=== PATIENT | male | born 2000 | race Caucasian/White ===

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

== ENCOUNTER 2020-08-26 19:16 | Emergency (ER) | payer MEDICAID ==
[2020-08-26] MEDS ORDERED: XYLOCAINE 1% HCL 20 ML MDV IJ ONE (19:45)
[2020-08-26] MEDS ORDERED: BACIGUENT PACKET ONE (19:56)
[2020-08-26] MEDS ORDERED: BACIGUENT PACKET TP ONE (19:56)
[2020-08-26] MEDS ORDERED: KEFLEX 500 MG ONE (19:57)
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
[2020-08-26 20:02] VITALS: BP 118/75; PULSE 96
[2020-08-26 20:06] VITALS: O2SAT 98
[2020-08-26] MEDS ORDERED: KEFLEX 500 MG PO ONE (20:07)
== END 2020-08-26 20:15 | disposition home or self-care (01) ==
LOC: ED 19:16
DX: S91.311A Laceration without foreign body, right foot, initial encounter (principal); W22.09XA Striking against other stationary object, initial encounter; Y93.89 Activity, other specified; Y92.89 Other specified places as the place of occurrence of the external cause
CPT/HCPCS: 12001; 96372; 99284; A9270-GY

== ENCOUNTER 2022-02-25 12:51 | Emergency (ER) | payer MEDICAID ==
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
[2022-02-25 15:26] VITALS: BP 138/72; PULSE 82; O2SAT 97
== END 2022-02-25 15:27 | disposition home or self-care (01) ==
LOC: ED 12:51
DX: S00.12XA Contusion of left eyelid and periocular area, initial encounter (principal); S20.212A Contusion of left front wall of thorax, initial encounter; S70.11XA Contusion of right thigh, initial encounter; S00.81XA Abrasion of other part of head, initial encounter; Y00.XXXA Assault by blunt object, initial encounter; Z72.0 Tobacco use; Z28.310 Unvaccinated for COVID-19
CPT/HCPCS: 70450; 71100; 99284

== ENCOUNTER 2023-05-21 12:15 | Emergency (ER) | payer MEDICAID ==
--- NOTE | 2023-05-21 12:16 | ERPHSYRPT ---
- History of Present Illness Time Seen by Provider: 05/21/23 12:16 Historian: patient Exam Limitations: no limitations Physician History: This is a 22-year-old white male who has no documented cardiac history and presents with left anterior chest pain that radiates into his back as well as down his left arm that began today. His symptoms are worse when he takes a deep breath. He has had no cough. He has had no fevers. He has no flulike symptoms. Timing/Duration: today Quality: sharpness Location: other Chest Pain Radiation: arm (Left), back (Left anterior chest) Severity of Pain-Max: mild (To moderate) Severity of Pain-Current: mild Modifying Factors: Improves With: nothing Associated Symptoms: denies symptoms Prior Chest Pain/Cardiac Workup: no prior chest pain, no prior cardiac workup Nitro Today/Relief: no nitro taken today Aspirin Treatment Today: 81 mg x 4, provided by ED Allergies/Adverse Reactions: codeine Adverse Reaction (Mild, Verified 08/26/20 19:22) nightmares Home Medications: No Reportable Medications [No Reported Medications] 05/21/23 [History] Hx Tetanus, Diphtheria Vaccination/Date Given: Yes (2017) Hx Influenza Vaccination/Date Given: No Hx Pneumococcal Vaccination/Date Given: No Travel Risk - International Travel Have you traveled outside of the country in past 3 weeks: No - Coronavirus Screening Are you exhibiting any of the following symptoms?: No Close contact with a COVID-19 positive Pt in past 14-21 Days: No - Vaccine Status Have you recieved a Covid-19 vaccination: No - Review of Systems Constitutional: No Symptoms Eyes: No Symptoms Ears, Nose, & Throat: No Symptoms Respiratory: No Symptoms Cardiac: Chest Pain Abdominal/Gastrointestinal: No Symptoms Genitourinary Symptoms: No Symptoms Musculoskeletal: No Symptoms Skin: No Symptoms Neurological: No Symptoms Psychological: No Symptoms Endocrine: No Symptoms Hematologic/Lymphatic: No Symptoms Immunological/Allergic: No Symptoms All Other Systems: Reviewed and Negative - Past Medical History Pertinent Past Medical History: Yes Neurological History: No Pertinent History ENT History: No Pertinent History Cardiac History: No Pertinent History Respiratory History: No Pertinent History Endocrine Medical History: No Pertinent History Musculoskeletal History: No Pertinent History GI Medical History: No Pertinent History History: No Pertinent History Psycho-Social History: Depression Male Reproductive Disorders: No Pertinent History - Past Surgical History Past Surgical History: No - Social History Smoking Status: Current every day smoker How long have you smoked: 5 years Exposure to second hand smoke: No Drug Use: none Patient Lives Alone: No - Nursing Vital Signs Nursing Vital Signs: Initial Vital Signs Temperature 97.2 F 05/21/23 12:15 Pulse Rate 59 L 05/21/23 12:15 Respiratory Rate 22 05/21/23 12:15 Blood Pressure 158/97 05/21/23 12:15 O2 Sat by Pulse Oximetry 99 05/21/23 12:15 Pain Scale Pain Intensity 2 - Physical Exam General Appearance: no apparent distress, alert, anxiety Eye Exam: PERRL/EOMI, eyes nml inspection Ears, Nose, Throat Exam: normal ENT inspection, moist mucous membranes Neck Exam: normal inspection, non-tender, supple, full range of motion Respiratory Exam: normal breath sounds, chest tenderness, lungs clear, airway intact, No respiratory distress Cardiovascular Exam: regular rate/rhythm, normal heart sounds, normal peripheral pulses Gastrointestinal/Abdomen Exam: soft, normal bowel sounds, No tenderness Rectal Exam: not done Back Exam: normal inspection, normal range of motion, No CVA tenderness, No juan tebral tenderness Extremity Exam: normal inspection, normal range of motion, pelvis stable Neurologic Exam: alert, oriented x 3, cooperative, environmental planning engineer II-XII nml as tested, nml cerebellar function, nml station & gait, sensation nml Skin Exam: normal color, warm, dry Lymphatic Exam: No adenopathy SpO2 Interpretation: normal O2 Delivery: Room Air - Course Nursing assessment & vital signs reviewed: Yes EKG Interpreted by Me: RATE (58), Sinus Rhythm, NORMAL AXIS, NORMAL INTERVALS, NORMAL QRS, NORMAL ST-T, Other (No acute ischemic changes on today's twelve-lead EKG) Ordered Tests: Active Orders 24 hr Category Date Time Status Professor Of Musicology STAT Care 05/21/23 12:27 Active EKG-ER Only STAT Care 05/21/23 12:27 Active CHEST 1 VIEW (PORTABLE) Stat Exams 05/21/23 12:27 Completed CBC W DIFF Stat Lab 05/21/23 12:27 Completed CMP Stat Lab 05/21/23 12:25 Completed D-DIMER QUANTITATIVE Stat Lab 05/21/23 12:25 Completed TROPONIN Q4H Lab 05/21/23 12:25 Completed TROPONIN Q4H Lab 05/21/23 16:30 Ordered TROPONIN Q4H Lab 05/21/23 20:30 Ordered Medication Summary Discontinued Medications Generic Name Dose Route Start Last Admin Trade Name Freq PRN Reason Stop Dose Admin Aspirin 324 mg 05/21/23 12:27 05/21/23 12:42 Aspirin 81 Mg Tab.Chew PO 05/21/23 12:28 324 mg STAT ONE Administration Lab/Rad Data: Laboratory Result Diagrams 05/21/23 12:27 05/21/23 12:25 Laboratory Results 05/21/23 05/21/23 05/21/23 Range/Units 12:27 12:25 12:25 WBC 7.2 (4.0-10.5) x10^3/uL RBC 5.19 (4.1-5.6) x10^6/uL Hgb 15.7 (12.5-18.0) g/dL Hct 46.0 (42-50) % MCV 88.6 (78-100) fL MCH 30.3 (26-32) pg MCHC 34.1 (32-36) g/dL RDW 12.9 (11.5-14.0) % Plt Count 242 (150-450) x10^3/uL MPV 9.3 (7.5-11.0) fL Gran % 73.2 H (36.0-66.0) % Immature Gran % (Auto) 0.4 (0.00-0.4) % Nucleat RBC Rel Count 0.0 (0.00-0.1) % Eos # (Auto) 0.04 (0-0.5) x10^3/uL Immature Gran # (Auto) 0.03 (0.00-0.03) x10^3u/L Absolute Lymphs (auto) 1.31 (1.0-4.6) x10^3/uL Absolute Monos (auto) 0.52 (0.0-1.3) x10^3/uL Absolute Nucleated RBC 0.00 (0.00-0.01) x10^3u/L Lymphocytes % 18.2 L (24.0-44.0) % Monocytes % 7.2 (0.0-12.0) % Eosinophils % 0.6 (0.00-5.0) % Basophils % 0.4 (0.0-0.4) % Absolute Granulocytes 5.25 (1.4-6.9) x10^3/uL Basophils # 0.03 (0-0.4) x10^3/uL D-Dimer < 0.19 (0.0-0.50) mg/L Sodium (137-145) mmol/L Potassium (3.5-5.1) mmol/L Chloride (98-107) mmol/L Carbon Dioxide (22-30) mmol/L Anion Gap (5-15) MEQ/L BUN (9-20) mg/dL Creatinine (0.66-1.25) mg/dL Estimated GFR ML/MIN Glucose (74-106) mg/dL Calcium (8.4-10.2) mg/dL Total Bilirubin (0.2-1.3) mg/dL AST (17-59) U/L ALT (0-50) U/L Alkaline Phosphatase (38-126) U/L Troponin I < 0.012 (0.000-0.034) ng/mL Serum Total Protein (6.3-8.2) g/dL Albumin (3.5-5.0) g/dL 05/21/23 Range/Units 12:25 WBC (4.0-10.5) x10^3/uL RBC (4.1-5.6) x10^6/uL Hgb (12.5-18.0) g/dL Hct (42-50) % MCV (78-100) fL MCH (26-32) pg MCHC (32-36) g/dL RDW (11.5-14.0) % Plt Count (150-450) x10^3/uL MPV (7.5-11.0) fL Gran % (36.0-66.0) % Immature Gran % (Auto) (0.00-0.4) % Nucleat RBC Rel Count (0.00-0.1) % Eos # (Auto) (0-0.5) x10^3/uL Immature Gran # (Auto) (0.00-0.03) x10^3u/L Absolute Lymphs (auto) (1.0-4.6) x10^3/uL Absolute Monos (auto) (0.0-1.3) x10^3/uL Absolute Nucleated RBC (0.00-0.01) x10^3u/L Lymphocytes % (24.0-44.0) % Monocytes % (0.0-12.0) % Eosinophils % (0.00-5.0) % Basophils % (0.0-0.4) % Absolute Granulocytes (1.4-6.9) x10^3/uL Basophils # (0-0.4) x10^3/uL D-Dimer (0.0-0.50) mg/L Sodium 139 (137-145) mmol/L Potassium 4.0 (3.5-5.1) mmol/L Chloride 102 (98-107) mmol/L Carbon Dioxide 25 (22-30) mmol/L Anion Gap 16.5 H (5-15) MEQ/L BUN 11 (9-20) mg/dL Creatinine 0.70 (0.66-1.25) mg/dL Estimated GFR > 60.0 ML/MIN Glucose 99 (74-106) mg/dL Calcium 9.7 (8.4-10.2) mg/dL Total Bilirubin 0.50 (0.2-1.3) mg/dL AST 27 (17-59) U/L ALT 29 (0-50) U/L Alkaline Phosphatase 59 (38-126) U/L Troponin I (0.000-0.034) ng/mL Serum Total Protein 8.5 H (6.3-8.2) g/dL Albumin 5.1 H (3.5-5.0) g/dL - Progress Progress: improved, re-examined Air Movement: good Progress Note: 05/21/23 12:32 This patient's medical issue is 1 of moderate complexity. Level complexity in the work-up performed based on review of the patient's past medical history, review the patient's medication list, review of the patient drug allergy list, history of present illness and physical findings on examination. The work-up in this patient includes a twelve-lead EKG, D-dimer level, troponin level, CBC and CMP as well as a chest x-ray. 05/21/23 12:56 Chest x-ray was interpreted by the radiologist and I reviewed the impression. There is no evidence of any acute cardiopulmonary process. Blood Culture(s) Obtained: No Antibiotics given: No Counseled pt/family regarding: lab results, diagnosis, need for follow-up, rad results Medical Desision Making - Diagnostic Testing Diagnostic test were ordered, analyzed, and reviewed by me: Yes Radiological Interpretation: Reviewed by me, Teleradiologist Report - Risk of complications Minimal Risk: Minimal risk of morbidity - Departure Departure Disposition: Home Clinical Impression: Chest pain Condition: Stable Critical Care Time: No Additional Instructions: Drink plenty fluids. May use Tylenol and ibuprofen for chest and back pain. Call your primary care provider today, 05/21/2023, to make arrangement for follow-up appointment in the next 3 to 5 days
[2023-05-21] MEDS ORDERED: BABY ASPIRIN 81 MG CHEW PO ONE (12:27)
--- NOTE | 2023-05-21 12:43 | XRAY ---
Indication: Painful inspiration. Comparison: August 01, 2021 Portable chest again demonstrates normal heart, lungs, and bony thorax.
[2023-05-21 12:50] LABS: Absolute Neutrophil Ct (ANC) 5.25 x10^3/uL (1.4-6.9); BASOPHIL % 0.4 % (0.0-0.4); Basophil (Absolute #) 0.03 x10^3/uL (0-0.4); Eosinophil % 0.6 % (0.00-5.0); Eosinophil (Absolute #) 0.04 x10^3/uL (0-0.5); Hemoglobin 15.7 g/dL (12.5-18.0); IMMATURE GRAN # 0.03 x10^3u/L (0.00-0.03); IMMATURE GRAN % 0.4 % (0.00-0.4); Lymphocyte (Absolute #) 1.31 x10^3/uL (1.0-4.6); Lymphocytes % 18.2 % (24.0-44.0); Mean Cell Volume 88.6 fL (78-100); Mean Corpuscular Hemoglobin 30.3 pg (26-32); Mean Corpuscular Hgb Concent. 34.1 g/dL (32-36); Mean Platelet Volume 9.3 fL (7.5-11.0); Monocyte (Absolute #) 0.52 x10^3/uL (0.0-1.3); Monocytes % 7.2 % (0.0-12.0); Neutrophil % 73.2 % (36.0-66.0); Platelet Count 242 x10^3/uL (150-450); Red Blood Count 5.19 x10^6/uL (4.1-5.6); Red Cell Distribution Width 12.9 % (11.5-14.0); White Blood Count 7.2 x10^3/uL (4.0-10.5)
[2023-05-21 13:04] LABS: ALBUMIN 5.1 g/dL (3.5-5.0); ALKALINE PHOSPHATASE 59 U/L (38-126); ANION GAP 16.5 MEQ/L (5-15); BLOOD UREA NITROGEN 11 mg/dL (9-20); CHLORIDE 102 mmol/L (98-107); Calcium 9.7 mg/dL (8.4-10.2); Carbon Dioxide 25 mmol/L (22-30); EST GLOMERULAR FILTRATION RATE > 60.0 ML/MIN; Glucose 99 mg/dL (74-106); SGOT/AST 27 U/L (17-59); SGPT/ALT 29 U/L (0-50); SODIUM 139 mmol/L (137-145); Total Protein 8.5 g/dL (6.3-8.2)
[2023-05-21 13:17] VITALS: PULSE 60
[2023-05-21 13:28] VITALS: BP 152/90; RESP 20; TEMP 98.2; O2SAT 98
== END 2023-05-21 13:38 | disposition home or self-care (01) ==
LOC: ED 12:15
DX: R07.9 Chest pain, unspecified (principal); Z28.310 Unvaccinated for COVID-19; Z72.0 Tobacco use
CPT/HCPCS: 36415; 71045; 80053; 84484; 85025; 85379; 93005; 93041; 99284; A9270-GY

== ENCOUNTER 2023-11-22 17:21 | Emergency (ER) | payer SELFPAY ==
[2023-11-22 18:29] VITALS: BP 156/90; PULSE 83; RESP 18; TEMP 97.6; O2SAT 98
[2023-11-22] MEDS ORDERED: Adacel Vial IM ONE (18:32)
[2023-11-22] MEDS: Adacel Vial IM ONE (18:33)
--- NOTE | 2023-11-22 18:43 | ERPHSYRPT ---
- History of Present Illness Time Seen by Provider: 11/22/23 18:38 Source: patient Exam Limitations: no limitations Patient Subjective Stated Complaint: Left foot pain Triage Nursing Assessment: Patient brought back to ED per w/c. Patient's skin pi nk, warm and dry. Patient complains of left foot pain. Patient was walking in grass with bare feet when he felt something sharp go into his left foot. Patient was seen in today and had x ray and PERSONNEL WORKER attempted to remove foreign body, but unable. Patient was told to come to ED due to large foreign body in left foot. Patient complains of pain 10/10. Patient has small puncture site to sole of left foot. Physician History: Patient complains of left foot pain. Patient was walking in grass with bare feet when he felt something sharp go into his left foot. Patient was seen in today and had x ray and PERSONNEL WORKER attempted to remove foreign body, but unable. Patient was told to come to ED due to large foreign body in left foot. Patient complains of pain 10/10. Patient has small puncture site to sole of left foot. Occurred: this morning Quality: constant Severity of Pain-Max: moderate Severity of Pain-Current: moderate Lower Extremities Pain: foot: left Modifying Factors: Improves With: nothing Associated Symptoms: unable to bear weight Allergies/Adverse Reactions: codeine Adverse Reaction (Mild, Verified 11/22/23 18:22) nightmares Home Medications: No Reportable Medications [No Reported Medications] 05/21/23 [History] Hx Tetanus, Diphtheria Vaccination/Date Given: No Hx Influenza Vaccination/Date Given: No Hx Pneumococcal Vaccination/Date Given: No Immunizations Up to Date: Yes Travel Risk - International Travel Have you traveled outside of the country in past 3 weeks: No - Emerging Infectious Disease Are you exhibiting symptoms associated with any current EIDs: No - Review of Systems Constitutional: No Fever, No Chills Eyes: No Symptoms Ears, Nose, & Throat: No Symptoms Respiratory: No Cough, No Dyspnea Cardiac: No Chest Pain, No Edema, No Syncope Abdominal/Gastrointestinal: No Abdominal Pain, No Nausea, No Vomiting, No Diarrhea Genitourinary Symptoms: No Dysuria Musculoskeletal: Other (left foot planter area pain), No Back Pain, No Neck Pain Skin: No Rash Neurological: No Dizziness, No Focal Weakness, No Sensory Changes Psychological: No Symptoms Endocrine: No Symptoms All Other Systems: Reviewed and Negative - Past Medical History Pertinent Past Medical History: Yes Neurological History: No Pertinent History ENT History: No Pertinent History Cardiac History: No Pertinent History Respiratory History: No Pertinent History Endocrine Medical History: No Pertinent History Musculoskeletal History: No Pertinent History GI Medical History: No Pertinent History History: No Pertinent History Psycho-Social History: Depression Male Reproductive Disorders: No Pertinent History - Past Surgical History Past Surgical History: No - Social History Smoking Status: Never smoker How long have you smoked: 5 years Exposure to second hand smoke: No Drug Use: none Patient Lives Alone: No - Nursing Vital Signs Nursing Vital Signs: Initial Vital Signs Temperature 97.6 F 11/22/23 18:23 Pulse Rate 83 11/22/23 18:23 Respiratory Rate 18 11/22/23 18:23 Blood Pressure 156/90 11/22/23 18:23 O2 Sat by Pulse Oximetry 98 11/22/23 18:23 Pain Scale Pain Intensity 10 - Physical Exam General Appearance: mild distress Eyes, Ears, Nose, Throat Exam: normal ENT inspection Neck Exam: normal inspection Cardiovascular/Respiratory Exam: chest non-tender Gastrointestinal/Abdominal Exam: non-tender Back Exam: normal inspection Hips Exam: bilateral: non-tender Legs Exam: bilateral leg: non-tender Knees Exam: bilateral knee: non-tender Ankle Exam: bilateral ankle: non-tender Foot Exam: left foot: soft tissue tenderness (puncture wound at 5th metatarsal head) SpO2: 98 - Course Nursing assessment & vital signs reviewed: Yes Ordered Tests: Medication Summary Discontinued Medications Generic Name Dose Route Start Last Admin Trade Name Freq PRN Reason Stop Dose Admin Diphtheria/Tetanus/Acell Pertussis 0.5 ml 11/22/23 18:30 11/22/23 18:33 Tdap --Diph,Pertuss(Acell),Tet Vac/Pf 0.5 Ml Vial IM 11/22/23 18:31 0.5 ml .ONCE ONE Administration Diphtheria/Tetanus/Acell Pertussis Confirm 11/22/23 18:32 Tdap --Diph,Pertuss(Acell),Tet Vac/Pf 0.5 Ml Vial Administered 11/22/23 18:33 Dose 0.5 ml IM .STK-MED ONE - Progress Progress: unchanged Progress Note: 11/22/23 18:[address] Biswas contacted. He will do surgery Tommorow at 1 PM. Patient is advised to stay NPO. 11/22/23 19:[address] Other (Dr Biswas ortho) Counseled pt/family regarding: diagnosis, need for follow-up - Departure Departure Disposition: Home Clinical Impression: Foreign body in foot Qualifiers: Encounter type: initial encounter Laterality: left Qualified Code(s): S90.852A - Superficial foreign body, left foot, initial encounter Condition: Stable Critical Care Time: No Referrals: DOCTOR,NO FAMILY [Primary Care Provider] - Follow up/PCP as directed Additional Instructions: Your surgery is scheduled for tomorrow at [address] Biswas will do your surgery. Do not eat or drink anything after midnight. You can drink sip of water. Come tomorrow at 12 noon and register yourself. Try to stay off that foot till tomorrow. Discharge/Care Plan SEGUNDO LOMAS was seen on 11/22/23 in the Emergency Room. The patient was counseled regarding Diagnosis,Lab results, Imaging studies, need for follow up and when to return to the Emergency Room. Prescriptions given: Discharge Note I have spoken with the patient and/or caregivers. I have explained the patient's condition, diagnosis and treatment plan based on the information available to me at this time. I have answered the patient's and/or caregiver's questions and addressed any concerns. The patient and/or caregivers have as good understanding of the patient's diagnosis, condition and treatment plan as can be expected at this point. The vital signs have been stable. The patient's condition is stable and appropriate for discharge from the emergency department. The patient will pursue further outpatient evaluation with the primary care physician or other designated or consulting physician as outlined in the discharge instructions. The patient and/or caregivers are agreeable to this plan of care and follow-up instructions have been explained in detail. The patient and/or caregivers have received these instruction. The patient/and or caregivers are aware that any significant change in condition or worsening of symptoms should prompt an immediate return to this or the closest emergency department or call 911. SEGUNDO LOMAS was seen on 11/22/23 n the Emergency Room. At that time you were treated for an emergent condition, during your visit Laboratory, Radiology and/or other procedures may have been ordered. It is very important that you follow-up with your Primary Care Physician NO FAMILY DOCTOR within the next 24- 48 hours to review your Emergency Room visit and the final results of testing that was ordered. Some test results such as Urine Cultures, Blood Cultures, and other cultures if ordered will not be finalized for 24-48 hours. If you do not have a Primary Care Provider please call the medical records department at [phone] ext [phone] to obtain a copy of your results or you may sign into our patient portal to obtain these results by visiting us @ [email or web address] and completing the following steps: 1. Click on the Patient Portal link 2. Click the Patient Self Enrollment Link to complete the enrollment form and entering your 3. Once the enrollment form is completed you will receive an email with a temporary ID and password at the email address you provided. 4. Next choose a user name and password. Your user name must be at least 4 characters long and your password must be at least 4 characters long. 5. Choose a security question from the list and provide your answer to the question. If you already have signed into the Health Portal you may access your Health Care Information 24/03 by the following steps: 1. Login to our website @ [email or web address] 2. Enter your original user name and password. FAQS The [facility] Health Portal is an online tool that contains your Lab Results, Radiology Reports, Visit History, Discharge Instructions and Health Summary Lab and Radiology Results will not be available for 72 hours on the portal. The Portal is a secure site, passwords are encryted and URLs are re-written so they cannot be copied and pasted. You and authorized family members are the only ones who can access your Portal. Also there is a timeout feature that protects your information if you leave the Portal page open. If you have technical difficulty please use the Contact Us link on the page this will allow you to submit any questions you have regarding the Portal or you may contact the Medical Record Department at [phone] ext [phone].
== END 2023-11-22 19:31 | disposition home or self-care (01) ==
LOC: ED 17:21
DX: S91.342A Puncture wound with foreign body, left foot, initial encounter (principal); W22.8XXA Striking against or struck by other objects, initial encounter; Z23 Encounter for immunization
CPT/HCPCS: 90471; 90715; 99282

== ENCOUNTER 2023-11-23 08:31 | Day surgery (SDC) | payer SELFPAY ==
--- NOTE | 2023-11-23 09:14 | PCM.HP ---
History of Present Illness - Chief Complaint History of Present Illness: is a 23 year old White male who stepped on something sharp 2 days ago. He went to the urgent care and had attempted to remove this under local but was unsuccessful. He came back to emergency room last night and again was unsuccessful.Is very painful and he wishes to have removed. No prior problems of foot. No numbness or tingling. No other injuries.No chestPain shortness of breath fevers chills. Medications & Allergies Home Medications: Home Medication List Cephalexin Mh 500 mg [Keflex 500 mg] 500 mg PO TID 11/23/23 [History Confirmed 11/23/23] Allergies/Adverse Reactions: Allergies Allergy/AdvReac Type Severity Reaction Status Date / Time codeine AdvReac Mild nightmares Verified 11/22/23 18:22 - Past Medical History Past Medical History: Yes Cardiac History: No Pertinent History Respiratory History: No Pertinent History Endocrine Medical History: No Pertinent History Musculoskelatal History: No Pertinent History GI Medical History: No Pertinent History History: No Pertinent History Pyscho-Social History: Depression Male Reproductive Disorders: No Pertinent History - Past Surgical History Past Surgical History: No - Social History Smoking Status: Never smoker How long have you smoked: 5 years Exposure to second hand smoke: No Alcohol: Occasionally Drug Use: none - Social Determinants of Health Will the patient participate in the screening: Yes Do you worry about a steady place to live?: No In the past 12 months,have you had to go without utilities?: No Have you or anyone in your house had to go without enough: No Transportation Issues: No Has anyone in your support network made you feel unsafe?: No - Physical Exam Additional Findings: 11/23/23 09:11 Pleasant male, no apparent distress, alert and orient x 3, normal height and weight Heart regular rate rhythm Nontender positive bowel sounds Lungs clear bilaterally Left foot shows a small puncture over the plantar aspect of the fifth metatarsal head. Patient able to Flex and extend toes well. Good sensation. 2+ dorsalis pedis pulse. No erythema or fluctuance. X-rays show a small vertically oriented semiradiopaque foreign body over the fifth metatarsal head along the plantar aspect about 9 mm long and 2 mm wide Assessment/Plan (1) Foreign body in foot Current Visit: No Status: Acute Assessment & Plan: Left foot foreign body Explained to patient that this can likely be removed but sometimes can be hard to findHe understands risk include bleeding, infection, damage to nerves or blood vessels, wound healing problems, possible need for further surgery, Possible painpossible inability to remove all or any of the foreign body, and the risk of medical or anesthetic complications including the risk of . Patient was to proceed with surgery today under general anesthesia. He will go home afterwards. He will be able to weight-bear on his heel. Code(s): S90.859A - SUPERFICIAL FOREIGN BODY, UNSPECIFIED FOOT, INIT ENCNTR
[2023-11-23] MEDS ORDERED: Marcaine 0.5%/Epinephrine 10 ML ONE (09:18)
[2023-11-23] MEDS ORDERED: SUBLIMAZE 100 MCG/2 ML ONE (09:20)
[2023-11-23] MEDS ORDERED: DIPRIVAN 200 MG/20 ML IV ONE (09:20)
[2023-11-23] MEDS ORDERED: Versed 2 MG/2 ML Injection ONE (09:20)
[2023-11-23] MEDS ORDERED: Zofran 4 MG/2 ML VIAL ONE (09:20)
[2023-11-23] MEDS ORDERED: Xylocaine-Mpf 2% 5 Ml Vial ONE (09:20)
[2023-11-23] MEDS ORDERED: Decadron 4 MG INJ ONE (09:20)
[2023-11-23 09:21] VITALS: RESP 16; TEMP 97.3; O2SAT 98
[2023-11-23] MEDS ORDERED: TORAdol 30 mg Injection ONE (09:21)
[2023-11-23] MEDS: Lactated Ringers 1,000 ML IV SCH (09:28)
[2023-11-23] MEDS: CEFAZOLIN 2 GM-D5W BAG** 2 GM/50 ML ML IV ONE (09:32)
[2023-11-23] MEDS ORDERED: Hydromorphone 1 mg/ml Injection ONE (10:23)
[2023-11-23 10:58] VITALS: BP 127/87; PULSE 47
--- NOTE | 2023-11-24 11:20 | OP ---
PROCEDURE DATE/TIME: 11/23/2023 0942 PREOPERATIVE DIAGNOSIS: Left foot foreign body. POSTOPERATIVE DIAGNOSIS: Left foot foreign body. PROCEDURE: Removal of left foot foreign body. SURGEON: Shahid Biswas M.D. ANESTHESIA: General by PIPE LAYER. FINDINGS: A 5 x 2 mm sliver of brown glass at fifth metatarsal head. No evidence of infection. EBL: Zero. SPECIMEN: A piece of glass. DRAIN: None. FLUIDS: See anesthesia record. TOURNIQUET TIME: Three minutes. COMPLICATIONS: None. INDICATIONS FOR PROCEDURE: The patient is a 23-year-old white male who stepped on a piece of glass two days ago. Two attempts were made by the ER to remove but did not get this out. He wished to have this removed due to the intense pain. DESCRIPTION OF PROCEDURE: The patient was seen preoperatively. We identified the left foot and this was initialed by me. He had 2 gm of Kefzol IV preoperatively. He had general anesthesia in the supine position with blunt binder on his left hip. Sterile prep and drape of left lower extremity. Tourniquet was applied after gravity exsanguination around the calf to 250 mm of Mercury. Total tourniquet time was 3 minutes. A 5 mm longitudinal incision was made in the center of the puncture wound longitudinally on the plantar aspect of the fifth metatarsal head spreading it with a hemostat and then a piece of brown glass is encountered which was removed. Probing was done and no additional foreign body is seen or felt. The wound is then irrigated with a syringe with normal saline copiously. Tourniquet was released with minimal bleeding. The wound was closed loosely with 3-0 Nylon suture. Sterile dressing were applied. DISPOSITION: The patient is to be weightbearing as tolerated on his heel. He will have the suture removed in two weeks. He will need to take anti-inflammatories for pain. He can get the wound wet in five days.
== END 2023-11-23 11:15 | disposition home or self-care (01) ==
LOC: SDC 08:31
PROVIDERS: ATTEND Orthopaedic Surgery
DX: S90.852A Superficial foreign body, left foot, initial encounter (principal)
CPT/HCPCS: 10120; 73630; 76000; J0690; J1100; J1170; J1885; J2250; J2405; J2704; J3010

== ENCOUNTER 2024-05-12 04:11 | Observation (INO) | payer SELFPAY ==
--- NOTE | 2024-05-12 04:58 | ERPHSYRPT ---
- History of Present Illness Time Seen by Provider: 05/12/24 04:30 Source: patient Exam Limitations: no limitations Patient Subjective Stated Complaint: Vomiting multiple times and thought he seen blood in his vomit. STates has been shaky and diaphorectic. Chest feels hot and throat feels hot and is sore from vomiting. Triage Nursing Assessment: Patient presents with vomiting multiple times this morning and c/o seeing blood in vomit. States is diaphorectic and shaky. Having some abdominal pain in the upper abdominal area. is a heavy drinker. drinks alot of liquor and beer. Went on a 4 day drinking avalos and stopped drinking yesturday around 2pm. Then woke up shaking. Physician History: Patient is a 23-year-old male presents to emergency department for evaluation of epigastric pain recurrent nausea vomiting with blood-tinged vomitus. Patient reported his last meal was pizza. Patient vomited up his pizza and reports observing blood. Patient provided a photo of the vomitus however blood was not obvious in the photo. Patient reports drinking heavily. He drinks both beer and heavy liquor. Patient's significant other recently left him with his 3 children because of his drinking. In the last 4 days patient has been on a drinking binge. Patient states he normally does not get shakes if he does not drink. However he began shaking after his 3-day drinking binge. He has not consumed alcohol in 15 hours. No seizure activity reported. Patient symptoms are moderate in intensity. No specific worsening or improving factors. Patient reports he is otherwise healthy. Patient voices no other complaints or concerns at this time. Portions of this note were created with voice recognition technology. There may be grammatical, spelling, punctuation or sound alike errors Timing/Duration: today Severity: moderate Modifying Factors: Improves With: nothing Associated Symptoms: denies symptoms Allergies/Adverse Reactions: codeine Adverse Reaction (Mild, Verified 05/12/24 04:20) nightmares Hx Tetanus, Diphtheria Vaccination/Date Given: Yes Hx Influenza Vaccination/Date Given: No Hx Pneumococcal Vaccination/Date Given: No Immunizations Up to Date: Yes Travel Risk - International Travel Have you traveled outside of the country in past 3 weeks: No - Emerging Infectious Disease Are you exhibiting symptoms associated with any current EIDs: Yes Symptoms: Abdominal Pain, Headaches/Body Aches/, Vomitting Comment: Patient stated that he was drinking heavy for 4 days and then became nauseated and started vomiting. Father states patient is heavy drinker - Review of Systems Constitutional: No Symptoms, No Fever, No Chills Eyes: No Symptoms Ears, Nose, & Throat: No Symptoms Respiratory: No Symptoms, No Cough, No Dyspnea Cardiac: No Symptoms, No Chest Pain, No Edema, No Syncope Abdominal/Gastrointestinal: No Symptoms, No Abdominal Pain, No Nausea, No Vomiting, No Diarrhea Genitourinary Symptoms: No Symptoms, No Dysuria Musculoskeletal: No Symptoms, No Back Pain, No Neck Pain Skin: No Symptoms, No Rash Neurological: No Symptoms, No Dizziness, No Focal Weakness, No Sensory Changes Psychological: No Symptoms Endocrine: No Symptoms Hematologic/Lymphatic: No Symptoms Immunological/Allergic: No Symptoms All Other Systems: Reviewed and Negative - Past Medical History Pertinent Past Medical History: Yes Neurological History: No Pertinent History ENT History: No Pertinent History Cardiac History: No Pertinent History Respiratory History: No Pertinent History Endocrine Medical History: No Pertinent History Musculoskeletal History: No Pertinent History GI Medical History: No Pertinent History History: No Pertinent History Psycho-Social History: Depression, Other Male Reproductive Disorders: No Pertinent History Other Medical History: Alcoholic - Past Surgical History Past Surgical History: Yes Neuro Surgical History: No Pertinent History Cardiac: No Pertinent History Respiratory: No Pertinent History Gastrointestinal: No Pertinent History Genitourinary: No Pertinent History Musculoskeletal: No Pertinent History, Other Male Surgical History: No Pertinent History Other Surgical History: plate R hand, right foot glass removed surgically - Social History Smoking Status: Current every day smoker How long have you smoked: 5 years Exposure to second hand smoke: No Drug Use: marijuana Patient Lives Alone: No - Social Determinants of Health Will the patient participate in the screening: Yes Do you worry about a steady place to live?: No Do you have any problems with any of the following?: No known problems In the past 12 months,have you had to go without utilities?: No Transportation Issues: No Has anyone in your support network made you feel unsafe?: No Have you or anyone in your house had to go without enough: No - Nursing Vital Signs Nursing Vital Signs: Initial Vital Signs Temperature 97.9 F 05/12/24 04:21 Pulse Rate 89 05/12/24 04:21 Respiratory Rate 18 05/12/24 04:21 Blood Pressure 165/106 05/12/24 04:21 O2 Sat by Pulse Oximetry 99 05/12/24 04:21 Pain Scale Pain Intensity 0 - Physical Exam General Appearance: no apparent distress, alert Eye Exam: PERRL/EOMI, eyes nml inspection Ears, Nose, Throat Exam: normal ENT inspection, TMs normal, pharynx normal, moist mucous membranes Neck Exam: normal inspection, non-tender, supple, full range of motion Respiratory Exam: normal breath sounds, lungs clear, airway intact, No respiratory distress Cardiovascular Exam: regular rate/rhythm, normal heart sounds, normal peripheral pulses Gastrointestinal/Abdomen Exam: soft, normal bowel sounds, No tenderness, No mass Back Exam: normal inspection, normal range of motion, No CVA tenderness, No vertebral tenderness Extremity Exam: normal inspection, normal range of motion, pelvis stable Neurologic Exam: alert, oriented x 3, cooperative, normal mood/affect, sensation nml, No motor deficits Skin Exam: normal color, warm, dry, No rash Lymphatic Exam: No adenopathy SpO2 Interpretation: normal SpO2: 99 O2 Delivery: Room Air - Course Nursing assessment & vital signs reviewed: Yes - CT Exams Abdomen/Pelvis CT Interpretation: Tele-radiologist Report (No acute intra-abdominal findings) Ordered Tests: Active Orders 24 hr Category Date Time Status IV Insertion STAT Care 05/12/24 04:56 Active Telemetry q4h Care 05/12/24 06:08 Active ABDOMEN AND PELVIS W/0 CONTRAS [CT] Stat Exams 05/12/24 05:04 Completed CBC W DIFF Stat Lab 05/12/24 04:56 Completed CMP Stat Lab 05/12/24 04:30 Completed LIPASE Stat Lab 05/12/24 04:30 Completed TROPONIN Q4H Lab 05/12/24 04:30 Completed TROPONIN Q4H Lab 05/12/24 09:00 Ordered TROPONIN Q4H Lab 05/12/24 13:00 Ordered UA W/RFX UR CULTURE Stat Lab 05/12/24 05:00 Completed Medication Summary Generic Name Dose Route Start Last Admin Trade Name Freq PRN Reason Stop Dose Admin Potassium Chloride 20 meq in 100 mls @ 50 mls/hr 05/12/24 06:07 05/12/24 06:18 Potassium Chloride 20 Meq In Water 100ml IV 05/12/24 08:06 50 mls/hr STAT ONE Administration Magnesium Sulfate/Dextrose 100 mls @ 100 mls/hr 05/12/24 06:15 05/12/24 07:07 Magnesium 1 Gm / 100 Ml D5w IV 05/12/24 08:14 100 mls/hr Q1H BRIDGETT Administration Sodium Chloride 1,000 mls @ 100 mls/hr 05/12/24 06:30 05/12/24 06:19 Sodium Chloride 0.9% 1000 Ml IV 06/11/24 06:29 100 mls/hr .Q10H BRIDGETT Administration Discontinued Medications Generic Name Dose Route Start Last Admin Trade Name Hernando PRN Reason Stop Dose Admin Al Hydrox/Mg Hydrox/Simethicone Confirm 05/12/24 05:03 Mag Hydrox/Al Hydrox/Simeth 30 Ml Udcup Administered 05/12/24 05:04 Dose 30 ml .ROUTE .STK-MED ONE Sodium Chloride 1,000 mls @ 999 mls/hr 05/12/24 04:56 05/12/24 07:13 Sodium Chloride 0.9% 1000 Ml IV 05/12/24 05:56 Infused .Q1H1M STA Infusion Sodium Chloride Confirm 05/12/24 05:03 Sodium Chloride 0.9% 1000 Ml Administered 05/12/24 05:04 Dose 1,000 mls @ ud .ROUTE .STK-MED ONE Sodium Chloride Confirm 05/12/24 06:16 Sodium Chloride 0.9% 1000 Ml Administered 05/12/24 06:17 Dose 1,000 mls @ ud .ROUTE .STK-MED ONE Potassium Chloride Confirm 05/12/24 06:16 Potassium Chloride 20 Meq In Water 100ml Administered 05/12/24 06:17 Dose 100 mls @ ud IV .STK-MED ONE Lidocaine HCl Confirm 05/12/24 05:03 Lidocaine Hcl 2% Viscous 15 Ml Udcup Administered 05/12/24 05:04 Dose 15 ml .ROUTE .STK-MED ONE Magnesium Hydroxide 45 ml 05/12/24 04:57 05/12/24 05:06 Mag Hydrx/Alum Hyd/Simeth/Lido 45 Ml Bottle PO 05/12/24 04:58 45 ml STAT ONE Administration Ondansetron HCl 4 mg 05/12/24 04:56 05/12/24 05:05 Ondansetron Hcl 4 Mg/2 Ml Vial IV 05/12/24 04:57 4 mg STAT ONE Administration Ondansetron HCl Confirm 05/12/24 05:02 Ondansetron Hcl 4 Mg/2 Ml Vial Administered 05/12/24 05:03 Dose 4 mg .ROUTE .STK-MED ONE Pantoprazole Sodium 40 mg 05/12/24 04:57 05/12/24 05:06 Pantoprazole 40 Mg Vial IV 05/12/24 04:58 40 mg STAT ONE Administration Pantoprazole Sodium Confirm 05/12/24 05:03 Pantoprazole 40 Mg Vial Administered 05/12/24 05:04 Dose 40 mg IV .STK-MED ONE Potassium Chloride 40 meq 05/12/24 06:09 05/12/24 06:17 Potassium Chloride Tab 10 Meq Tab PO 05/12/24 06:10 40 meq STAT ONE Administration Potassium Chloride Confirm 05/12/24 06:16 Potassium Chloride Tab 10 Meq Tab Administered 05/12/24 06:17 Dose 40 meq .ROUTE .STK-MED ONE Lab/Rad Data: Laboratory Result Diagrams 05/12/24 04:56 05/12/24 04:30 Laboratory Results 05/12/24 05/12/24 05/12/24 Range/Units 05:00 04:56 04:30 WBC 9.4 H (4.23-9.07) x10^3/uL RBC 4.97 (4.63-6.08) x10^6/uL Hgb 15.1 (13.7-17.5) g/dL Hct 43.1 (40.1-51.0) % MCV 86.7 (79.0-92.2) fL MCH 30.4 (25.7-32.2) pg MCHC 35.0 (32.3-36.5) g/dL RDW 13.1 (11.6-14.4) % Plt Count 256 (163-337) x10^3/uL MPV 9.3 L (9.4-12.4) fL Gran % 73.7 H (34.0-67.9) % Immature Gran % (Auto) 0.3 (0.001-0.429) % Nucleat RBC Rel Count 0.0 (0.00-0.2) % Eos # (Auto) 0.10 (0.04-0.54) x10^3/uL Immature Gran # (Auto) 0.03 (0.001-0.031) x10^3u/L Absolute Lymphs (auto) 1.54 (1.32-3.57) x10^3/uL Absolute Monos (auto) 0.74 (0.30-0.82) x10^3/uL Absolute Nucleated RBC 0.00 (0.00-0.012) x10^3u/L Lymphocytes % 16.5 L (21.8-53.1) % Monocytes % 7.9 (5.3-12.2) % Eosinophils % 1.1 (0.8-7.0) % Basophils % 0.5 (0.2-1.2) % Absolute Granulocytes 6.90 H (1.78-5.38) x10^3/uL Basophils # 0.05 (0.01-0.08) x10^3/uL Sodium (135-145) mmol/L Potassium (3.5-5.1) mmol/L Chloride (98-107) mmol/L Carbon Dioxide (22-30) mmol/L Anion Gap (5-15) MEQ/L BUN (9-20) mg/dL Creatinine (0.66-1.25) mg/dL Estimated GFR ML/MIN Glucose (74-106) mg/dL Calcium (8.4-10.2) mg/dL Total Bilirubin (0.2-1.3) mg/dL AST (17-59) U/L ALT (0-50) U/L Alkaline Phosphatase (38-126) U/L Troponin I < 0.012 (0.000-0.033) ng/mL Serum Total Protein (6.3-8.2) g/dL Albumin (3.5-5.0) g/dL Lipase (23-300) U/L Urine Color Yellow (Yellow) Urine Appearance Clear (Clear) Urine pH 5.5 (4.6-8.0) Ur Specific [place] 1.025 (1.005-1.030) Urine Protein Trace A (Negative) Urine Glucose (UA) Negative (Negative) mg/dL Urine Ketones Negative (Negative) Urine Blood Negative (Negative) Urine Nitrite Negative (Negative) Urine Bilirubin Negative (Negative) Urine Urobilinogen 1.0 A (0.2) mg/dL Ur Leukocyte Esterase Negative (Negative) U Hyaline Cast (Auto) 3-5 A (0-2) /LPF Urine Microscopic RBC 0-2 (0-5) /HPF Urine Microscopic WBC 0-2 (0-5) /HPF Ur Epithelial Cells None Seen (None Seen) /HPF Urine Bacteria None Seen (None Seen) /HPF Urine Culture Reflexed NO (NO) 05/12/24 Range/Units 04:30 WBC (4.23-9.07) x10^3/uL RBC (4.63-6.08) x10^6/uL Hgb (13.7-17.5) g/dL Hct (40.1-51.0) % MCV (79.0-92.2) fL MCH (25.7-32.2) pg MCHC (32.3-36.5) g/dL RDW (11.6-14.4) % Plt Count (163-337) x10^3/uL MPV (9.4-12.4) fL Gran % (34.0-67.9) % Immature Gran % (Auto) (0.001-0.429) % Nucleat RBC Rel Count (0.00-0.2) % Eos # (Auto) (0.04-0.54) x10^3/uL Immature Gran # (Auto) (0.001-0.031) x10^3u/L Absolute Lymphs (auto) (1.32-3.57) x10^3/uL Absolute Monos (auto) (0.30-0.82) x10^3/uL Absolute Nucleated RBC (0.00-0.012) x10^3u/L Lymphocytes % (21.8-53.1) % Monocytes % (5.3-12.2) % Eosinophils % (0.8-7.0) % Basophils % (0.2-1.2) % Absolute Granulocytes (1.78-5.38) x10^3/uL Basophils # (0.01-0.08) x10^3/uL Sodium 137 (135-145) mmol/L Potassium 3.2 L (3.5-5.1) mmol/L Chloride 100 (98-107) mmol/L Carbon Dioxide 28 (22-30) mmol/L Anion Gap 12.0 (5-15) MEQ/L BUN 10 (9-20) mg/dL Creatinine 0.71 (0.66-1.25) mg/dL Estimated GFR 131.4 ML/MIN Glucose 108 H (74-106) mg/dL Calcium 9.6 (8.4-10.2) mg/dL Total Bilirubin 0.60 (0.2-1.3) mg/dL AST 45 (17-59) U/L ALT 34 (0-50) U/L Alkaline Phosphatase 67 (38-126) U/L Troponin I (0.000-0.033) ng/mL Serum Total Protein 7.7 (6.3-8.2) g/dL Albumin 4.5 (3.5-5.0) g/dL Lipase 79 (23-300) U/L Urine Color (Yellow) Urine Appearance (Clear) Urine pH (4.6-8.0) Ur Specific [place] (1.005-1.030) Urine Protein (Negative) Urine Glucose (UA) (Negative) mg/dL Urine Ketones (Negative) Urine Blood (Negative) Urine Nitrite (Negative) Urine Bilirubin (Negative) Urine Urobilinogen (0.2) mg/dL Ur Leukocyte Esterase (Negative) U Hyaline Cast (Auto) (0-2) /LPF Urine Microscopic RBC (0-5) /HPF Urine Microscopic WBC (0-5) /HPF Ur Epithelial Cells (None Seen) /HPF Urine Bacteria (None Seen) /HPF Urine Culture Reflexed (NO) - Progress Progress: improved Progress Note: 23-year-old male presents to emergency department for evaluation of nausea vomiting and possible hematemesis. No hematemesis observed in our ED. Hemoglobin within normal limits. Potassium is low likely secondary to vomiting. Patient received Zofran, GI cocktail and IV fluids Protonix, potassium rep lacement as well as magnesium sulfate. CT abdomen pelvis instantly within normal limits. No acute pathology observed. Patient reassessed he is well patient tolerated p.o. No active pain. Vital stable. Father at bedside. Patient states he is ready for discharge. We will complete the infusion of magnesium and potassium. Patient will then be discharged home. Patient states that he will no longer consume alcohol. Patient is alcohol free for almost 20 hours. No signs of withdrawal no tachycardia normal heart rate normal vitals. Patient reassessed no tremors. Neurologic exam within normal limits. Additionally patient denies history of alcohol withdrawal. Patient agrees to follow-up with his primary care doctor within 48 hours for reevaluation. He voices no other complaints or concerns at this time. Portions of this note were created with voice recognition technology. There may be grammatical, spelling, punctuation or sound alike errors Complexity problem addressed is moderate acute complicated. No critical care time. No critical care time. Complex of data reviewed and analyzed is moderate. Test ordered test reviewed results analyzed and correlated clinically with history and physical exam. Risk of complication and or risk of morbidity/mortality patient management is moderate. A prescription for Zofran and Protonix forwarded to patient's pharmacy.. Vital stable. Time spent to discharge patient approximately 15 minutes. Plan of care established for shared decision making. No social determinants of health present impede follow-up. Portions of this note were created with voice recognition technology. There may be grammatical, spelling, punctuation or sound alike errors 05/12/24 07:22 Counseled pt/family regarding: lab results, diagnosis, rad results - Departure Departure Disposition: Home Clinical Impression: Epigastric pain, Alcohol abuse, Nausea and vomiting Condition: Stable Critical Care Time: No Referrals: DOCTOR,NO FAMILY [Primary Care Provider] - Follow up/PCP as directed SVETA BURGOS DO [ACTIVE STAFF] - Follow up/PCP as directed Additional Instructions: Discharge/Care Plan SEGNUDO LOMAS was seen on 05/12/24 in the Emergency Room. The patient was counseled regarding Diagnosis,Lab results, Imaging studies, need for follow up and when to return to the Emergency Room. Prescriptions given: Discharge Note I have spoken with the patient and/or caregivers. I have explained the patient's condition, diagnosis and treatment plan based on the information available to me at this time. I have answered the patient's and/or caregiver's questions and addressed any concerns. The patient and/or caregivers have as good understanding of the patient's diagnosis, condition and treatment plan as can be expected at this point. The vital signs have been stable. The patient's condition is stable and appropriate for discharge from the emergency department. The patient will pursue further outpatient evaluation with the primary care physician or other designated or consulting physician as outlined in the discharge instructions. The patient and/or caregivers are agreeable to this plan of care and follow-up instructions have been explained in detail. The patient and/or caregivers have received these instruction. The patient/and or caregivers are aware that any significant change in condition or worsening of symptoms should prompt an immediate return to this or the closest emergency department or call 911. Prescriptions: Ondansetron ODT 4 MG [Zofran Odt 4 mg] 4 mg PO Q6H PRN PRN #10 tablet PRN Reason: Vomiting PANTOPRAZOLE 40 mg Tablet [Protonix 40MG Tablet] 40 mg PO DAILY 14 Days #14 tab
[2024-05-12] MEDS ORDERED: Zofran 4 MG/2 ML VIAL ONE (05:02)
[2024-05-12] MEDS ORDERED: MAALOX ES 30 ML UNIT DOSE ONE (05:03)
[2024-05-12] MEDS ORDERED: Sodium Chloride 0.9% 1000 ML 1,000 ML ONE ×2 (05:03→06:16)
[2024-05-12] MEDS ORDERED: PROTONIX 40 MG IV IV ONE (05:03)
[2024-05-12] MEDS ORDERED: XYLOCAINE VISCOUS 2% 15 ML CUP ONE (05:03)
[2024-05-12] MEDS: Zofran 4 MG/2 ML VIAL IV ONE (05:05)
[2024-05-12] MEDS: Sodium Chloride 0.9% 1000 ML 1,000 ML IV STA (05:06)
[2024-05-12] MEDS: PROTONIX 40 MG IV IV ONE (05:06)
[2024-05-12] MEDS: GI COCKTAIL 45 ML (Maalox/Lidocaine) PO ONE (05:06)
[2024-05-12 05:10] LABS: BASOPHIL % 0.5 % (0.2-1.2); Basophil (Absolute #) 0.05 x10^3/uL (0.01-0.08); Eosinophil % 1.1 % (0.8-7.0); Hematocrit 43.1 % (40.1-51.0); Hemoglobin 15.1 g/dL (13.7-17.5); IMMATURE GRAN # 0.03 x10^3u/L (0.001-0.031); IMMATURE GRAN % 0.3 % (0.001-0.429); Lymphocyte (Absolute #) 1.54 x10^3/uL (1.32-3.57); Lymphocytes % 16.5 % (21.8-53.1); Mean Cell Volume 86.7 fL (79.0-92.2); Mean Corpuscular Hemoglobin 30.4 pg (25.7-32.2); Mean Platelet Volume 9.3 fL (9.4-12.4); Monocyte (Absolute #) 0.74 x10^3/uL (0.30-0.82); Monocytes % 7.9 % (5.3-12.2); Neutrophil % 73.7 % (34.0-67.9); Platelet Count 256 x10^3/uL (163-337); Red Blood Count 4.97 x10^6/uL (4.63-6.08); Red Cell Distribution Width 13.1 % (11.6-14.4); White Blood Count 9.4 x10^3/uL (4.23-9.07)
[2024-05-12 05:25] LABS: ALBUMIN 4.5 g/dL (3.5-5.0); BILIRUBIN,TOTAL 0.6 mg/dL (0.2-1.3); Calcium 9.6 mg/dL (8.4-10.2); Creatinine 1 0.71 mg/dL (0.66-1.25); EST GLOMERULAR FILTRATION RATE 131.4 ML/MIN; Potassium 3.2 mmol/L (3.5-5.1); Total Protein 7.7 g/dL (6.3-8.2)
[2024-05-12 05:36] LABS: Appearance Clear (Clear); Bacteria None Seen /HPF (None Seen); Bilirubin Negative (Negative); Blood Negative (Negative); Epithelial Cells None Seen /HPF (None Seen); Glucose, Urine Negative (Negative); Ketones Negative (Negative); Leukocyte Esterase Negative (Negative); Nitrite Negative (Negative); Ph 5.5 (4.6-8.0); Protein,Urine Dip Trace (Negative); RBC 0-2 /HPF (0-5); Specific Gravity 1.025 (1.005-1.030); WBC 0-2 /HPF (0-5)
[2024-05-12 05:37] LABS: ADD URINE CULTURE? NO (NO)
[2024-05-12] MEDS ORDERED: POTASSIUM CHLORIDE 20 mEq IN WATER 100ML 100 ML IV ONE (06:16)
[2024-05-12] MEDS ORDERED: Klor Con ONE (06:16)
[2024-05-12] MEDS ORDERED: Magnesium 1 Gm / 100 Ml D5W*** 100 ML IV ONE ×2 (06:16→07:06)
[2024-05-12] MEDS: Magnesium 1 Gm / 100 Ml D5W*** 100 ML IV SCH (06:17)
[2024-05-12] MEDS: Klor Con PO ONE (06:17)
[2024-05-12] MEDS: POTASSIUM CHLORIDE 20 mEq IN WATER 100ML 20 MEQ/100 ML BAG IV ONE (06:18)
[2024-05-12] MEDS: Sodium Chloride 0.9% 1000 ML 1,000 ML IV SCH (06:19)
--- NOTE | 2024-05-12 06:22 | XRAY ---
CLINICAL HISTORY: pain COMPARISON: none TECHNIQUE: Contiguous axial images were obtained from the level of the diaphragm to the pubic symphysis without intravenous or oral contrast. Coronal and sagittal reconstructions were likewise performed and indicated to increase the sensitivity for detecting clinically relevant pathology. CT scan was performed according to ALARA (as low as reasonable achievable). FINDINGS: The visualized lung bases are clear. Evaluation of the abdominal and pelvic visceral organs is limited without intravenous contrast. The unenhanced liver, spleen, pancreas, and adrenal glands are grossly unremarkable. The gallbladder is present. The kidneys are normal in size and attenuation without obvious calcification. There is no hydronephrosis or perinephric stranding. The ureters are normal in caliber. No adenopathy or fluid collections are seen. No evidence of focal or diffuse bowel wall thickening or evidence of bowel obstruction is seen. The appendix is visualized in the right lower quadrant and appears within normal limits. The aorta is normal in caliber. The urinary bladder is normal in contour. Pelvic viscera are grossly unremarkable. No aggressive appearing osseous lesions are identified. IMPRESSION: 1. Unremarkable study. Electronically Signed by: Dennis Cardenas MD. (05/12/2024 06:18:56 EDT)
[2024-05-12] MEDS ORDERED: VALIUM 10 MG/2 ML SYRINGE ONE (07:43)
[2024-05-12] MEDS: VALIUM 10 MG/2 ML SYRINGE IV ONE (07:45)
[2024-05-12] MEDS ORDERED: Sodium Chloride 0.9% 1000 ML 1,000 ML IV SCH (09:15)
[2024-05-12] MEDS: FOLATE 1 MG PO SCH (09:34)
[2024-05-12] MEDS: THERAGRAN MULTIVITAMIN PO SCH (09:34)
[2024-05-12] MEDS: VITAMIN B-1 100 MG PO SCH (09:34)
[2024-05-12] MEDS ORDERED: Compazine 10 MG/2 ML IM PRN (09:34)
[2024-05-12] MEDS: Dextrose 5%-NS IV Solution 1000 ML 1,000 ML IV SCH (10:57)
[2024-05-12] MEDS: Valium 5 MG PO PRN (11:25)
[2024-05-12 12:22] LABS: MAGNESIUM 2.1 mg/dL (1.6-2.3); Potassium 3.8 mmol/L (3.5-5.1)
[2024-05-12 12:38] LABS: Amphetamine,Urine NEGATIVE (NEGATIVE); Barbiturate,Urine NEGATIVE (NEGATIVE); Benzodiazepine,Urine NEGATIVE (NEGATIVE); Cocaine,Urine NEGATIVE (NEGATIVE); Methadone,Urine NEGATIVE (NEGATIVE); Opiate,Urine NEGATIVE (NEGATIVE); PCP,Urine NEGATIVE (NEGATIVE); THC,Urine POSITIVE (NEGATIVE)
--- NOTE | 2024-05-12 13:41 | PCM.HP ---
History of Present Illness - Chief Complaint Chief Complaint: Alcohol withdrawl, hypokalemia, abd pain Date: 05/12/24 History of Present Illness: is a 23 year old male with past medical history of depression and alcohol abuse. Presented to the ED with complaints of epigastric pain, nausea, and hematemesis x1 day. He has been binge drinking since his and children left the home 3 days ago. He stated that his significant other recently left him and has been drinking both beer and liquor for the last few days. He states he should have came in 2 days ago when he began shaking but instead started drinking more to relieve the shaking. Sxs are mild. Pt states that he wishes to get help to stop drinking. CT ABD/Pelvis was unremarkable. His potassium was 3.2, but was replaced in the ED, repeat lab @ 1200 was 3.8. Pt was started on zofran and compazine for N/V, protonix, and D5NS @ 150. Denies any further concerns at this time. - Review of Systems Constitutional: No Fever, No Chills Eyes: No Symptoms Ears, Nose, & Throat: No Symptoms Respiratory: No Cough, No Short Of Breath Cardiac: No Chest Pain, No Edema, No Syncope Abdominal/Gastrointestinal: Abdominal Pain, Nausea, Vomiting, Hematemesis, No Diarrhea Genitourinary Symptoms: No Dysuria Musculoskeletal: No Back Pain, No Neck Pain Skin: No Rash Neurological: Tremors, No Dizziness, No Focal Weakness, No Sensory Changes Psychological: No Symptoms, Alcohol Abuse, Depression Endocrine: No Symptoms Hematologic/Lymphatic: No Symptoms Immunological/Allergic: No Symptoms Medications & Allergies Home Medications: Home Medication List Ondansetron ODT 4 MG [Zofran Odt 4 mg] 4 mg PO Q6H PRN PRN #10 tablet 05/12/24 [Rx] PANTOPRAZOLE 40 mg Tablet [Protonix 40MG Tablet] 40 mg PO DAILY 14 Days #14 tab 05/12/24 [Rx] Allergies/Adverse Reactions: Allergies Allergy/AdvReac Type Severity Reaction Status Date / Time codeine AdvReac Mild nightmares Verified 05/12/24 04:20 - Past Medical History Past Medical History: Yes Neurological History: No Pertinent History ENT History: No Pertinent History Cardiac History: No Pertinent History Respiratory History: No Pertinent History Endocrine Medical History: No Pertinent History Musculoskelatal History: No Pertinent History GI Medical History: No Pertinent History History: No Pertinent History Pyscho-Social History: Depression, Other Male Reproductive Disorders: No Pertinent History Comment: Alcoholic - Past Surgical History Past Surgical History: Yes Neuro Surgical History: No Pertinent History Cardiac History: No Pertinent History Respiratory Surgery: No Pertinent History GI Surgical History: No Pertinent History Genitourinary Surgical Hx: No Pertinent History Musculskeletal Surgical Hx: No Pertinent History, Other Male Surgical History: No Pertinent History Other Surgical History: plate R hand, right foot glass removed surgically - Social History Smoking Status: Current every day smoker How long have you smoked: 5 years Exposure to second hand smoke: No Alcohol: Heavy, Weekly Drug Use: marijuana - Social Determinants of Health Will the patient participate in the screening: Yes Do you worry about a steady place to live?: No Do you have any problems with any of the following?: No known problems In the past 12 months,have you had to go without utilities?: No Have you or anyone in your house had to go without enough: No Transportation Issues: No Has anyone in your support network made you feel unsafe?: No Does the patient want assistance with any of the above?: No - Physical Exam Vital Signs: Vital Signs - 24 hr Temp Pulse Resp BP BP Pulse Ox 05/12/24 12:00 98.1 F 70 16 139/76 98 05/12/24 11:00 96 05/12/24 08:28 97.1 F 64 20 135/85 98 05/12/24 08:00 53 L 22 131/105 100 05/12/24 07:31 51 L 18 120/74 99 05/12/24 07:29 99 05/12/24 07:00 54 L 18 138/83 96 05/12/24 06:30 64 20 139/89 98 05/12/24 06:00 129/71 98 05/12/24 05:39 134/79 98 05/12/24 05:38 97 05/12/24 05:37 98 05/12/24 05:00 82 16 140/95 99 05/12/24 04:30 165/110 98 05/12/24 04:21 97.9 F 89 18 165/106 99 General Appearance: no apparent distress, mild distress, alert Neurologic Exam: alert, oriented x 3, cooperative, normal mood/affect, nml cerebellar function, nml station & gait, sensation nml, depressed mood/affect, No motor deficits Eye Exam: PERRL/EOMI, eyes nml inspection Ears, Nose, Throat Exam: normal ENT inspection, TMs normal, pharynx normal, moist mucous membranes Neck Exam: normal inspection, non-tender, supple, full range of motion Respiratory Exam: normal breath sounds, lungs clear, No respiratory distress Cardiovascular Exam: regular rate/rhythm, normal heart sounds, normal peripheral pulses Gastrointestinal/Abdomen Exam: soft, normal bowel sounds, tenderness, No mass Back Exam: normal inspection, normal range of motion, No CVA tenderness, No vertebral tenderness Extremity Exam: normal inspection, normal range of motion, pelvis stable Skin Exam: normal color, warm, dry, No rash Lymphatic Exam: No adenopathy Results - Labs Lab/Micro Results: Lab Results-Last 24 Hours 05/12/24 05/12/24 05/12/24 Range/Units 04:30 04:30 04:56 WBC 9.4 H (4.23-9.07) x10^3/uL RBC 4.97 (4.63-6.08) x10^6/uL Hgb 15.1 (13.7-17.5) g/dL Hct 43.1 (40.1-51.0) % MCV 86.7 (79.0-92.2) fL MCH 30.4 (25.7-32.2) pg MCHC 35.0 (32.3-36.5) g/dL RDW 13.1 (11.6-14.4) % Plt Count 256 (163-337) x10^3/uL MPV 9.3 L (9.4-12.4) fL Gran % 73.7 H (34.0-67.9) % Immature Gran % (Auto) 0.3 (0.001-0.429) % Nucleat RBC Rel Count 0.0 (0.00-0.2) % Eos # (Auto) 0.10 (0.04-0.54) x10^3/uL Immature Gran # (Auto) 0.03 (0.001-0.031) x10^3u/L Absolute Lymphs (auto) 1.54 (1.32-3.57) x10^3/uL Absolute Monos (auto) 0.74 (0.30-0.82) x10^3/uL Absolute Nucleated RBC 0.00 (0.00-0.012) x10^3u/L Lymphocytes % 16.5 L (21.8-53.1) % Monocytes % 7.9 (5.3-12.2) % Eosinophils % 1.1 (0.8-7.0) % Basophils % 0.5 (0.2-1.2) % Absolute Granulocytes 6.90 H (1.78-5.38) x10^3/uL Basophils # 0.05 (0.01-0.08) x10^3/uL Sodium 137 (135-145) mmol/L Potassium 3.2 L (3.5-5.1) mmol/L Chloride 100 (98-107) mmol/L Carbon Dioxide 28 (22-30) mmol/L Anion Gap 12.0 (5-15) MEQ/L BUN 10 (9-20) mg/dL Creatinine 0.71 (0.66-1.25) mg/dL Estimated GFR 131.4 ML/MIN Glucose 108 H (74-106) mg/dL Calcium 9.6 (8.4-10.2) mg/dL Magnesium (1.6-2.3) mg/dL Total Bilirubin 0.60 (0.2-1.3) mg/dL AST 45 (17-59) U/L ALT 34 (0-50) U/L Alkaline Phosphatase 67 (38-126) U/L Troponin I < 0.012 (0.000-0.033) ng/mL Serum Total Protein 7.7 (6.3-8.2) g/dL Albumin 4.5 (3.5-5.0) g/dL Lipase 79 (23-300) U/L Urine Color (Yellow) Urine Appearance (Clear) Urine pH (4.6-8.0) Ur Specific [place] (1.005-1.030) Urine Protein (Negative) Urine Glucose (UA) (Negative) mg/dL Urine Ketones (Negative) Urine Blood (Negative) Urine Nitrite (Negative) Urine Bilirubin (Negative) Urine Urobilinogen (0.2) mg/dL Ur Leukocyte Esterase (Negative) U Hyaline Cast (Auto) (0-2) /LPF Urine Microscopic RBC (0-5) /HPF Urine Microscopic WBC (0-5) /HPF Ur Epithelial Cells (None Seen) /HPF Urine Bacteria (None Seen) /HPF Urine Culture Reflexed (NO) Urine Opiates Level (NEGATIVE) Ur Methadone (NEGATIVE) Urine Barbiturates (NEGATIVE) Ur Phencyclidine (PCP) (NEGATIVE) Urine Amphetamine (NEGATIVE) U Benzodiazepine Level (NEGATIVE) Urine Cocaine (NEGATIVE) Urine Marijuana (THC) (NEGATIVE) 05/12/24 05/12/24 05/12/24 Range/Units 05:00 05:15 09:10 WBC (4.23-9.07) x10^3/uL RBC (4.63-6.08) x10^6/uL Hgb (13.7-17.5) g/dL Hct (40.1-51.0) % MCV (79.0-92.2) fL MCH (25.7-32.2) pg MCHC (32.3-36.5) g/dL RDW (11.6-14.4) % Plt Count (163-337) x10^3/uL MPV (9.4-12.4) fL Gran % (34.0-67.9) % Immature Gran % (Auto) (0.001-0.429) % Nucleat RBC Rel Count (0.00-0.2) % Eos # (Auto) (0.04-0.54) x10^3/uL Immature Gran # (Auto) (0.001-0.031) x10^3u/L Absolute Lymphs (auto) (1.32-3.57) x10^3/uL Absolute Monos (auto) (0.30-0.82) x10^3/uL Absolute Nucleated RBC (0.00-0.012) x10^3u/L Lymphocytes % (21.8-53.1) % Monocytes % (5.3-12.2) % Eosinophils % (0.8-7.0) % Basophils % (0.2-1.2) % Absolute Granulocytes (1.78-5.38) x10^3/uL Basophils # (0.01-0.08) x10^3/uL Sodium (135-145) mmol/L Potassium (3.5-5.1) mmol/L Chloride (98-107) mmol/L Carbon Dioxide (22-30) mmol/L Anion Gap (5-15) MEQ/L BUN (9-20) mg/dL Creatinine (0.66-1.25) mg/dL Estimated GFR ML/MIN Glucose (74-106) mg/dL Calcium (8.4-10.2) mg/dL Magnesium (1.6-2.3) mg/dL Total Bilirubin (0.2-1.3) mg/dL AST (17-59) U/L ALT (0-50) U/L Alkaline Phosphatase (38-126) U/L Troponin I < 0.012 (0.000-0.033) ng/mL Serum Total Protein (6.3-8.2) g/dL Albumin (3.5-5.0) g/dL Lipase (23-300) U/L Urine Color Yellow (Yellow) Urine Appearance Clear (Clear) Urine pH 5.5 (4.6-8.0) Ur Specific [place] 1.025 (1.005-1.030) Urine Protein Trace A (Negative) Urine Glucose (UA) Negative (Negative) mg/dL Urine Ketones Negative (Negative) Urine Blood Negative (Negative) Urine Nitrite Negative (Negative) Urine Bilirubin Negative (Negative) Urine Urobilinogen 1.0 A (0.2) mg/dL Ur Leukocyte Esterase Negative (Negative) U Hyaline Cast (Auto) 3-5 A (0-2) /LPF Urine Microscopic RBC 0-2 (0-5) /HPF Urine Microscopic WBC 0-2 (0-5) /HPF Ur Epithelial Cells None Seen (None Seen) /HPF Urine Bacteria None Seen (None Seen) /HPF Urine Culture Reflexed NO (NO) Urine Opiates Level NEGATIVE (NEGATIVE) Ur Methadone NEGATIVE (NEGATIVE) Urine Barbiturates NEGATIVE (NEGATIVE) Ur Phencyclidine (PCP) NEGATIVE (NEGATIVE) Urine Amphetamine NEGATIVE (NEGATIVE) U Benzodiazepine Level NEGATIVE (NEGATIVE) Urine Cocaine NEGATIVE (NEGATIVE) Urine Marijuana (THC) POSITIVE A (NEGATIVE) 05/12/24 05/12/24 Range/Units 11:55 11:55 WBC (4.23-9.07) x10^3/uL RBC (4.63-6.08) x10^6/uL Hgb (13.7-17.5) g/dL Hct (40.1-51.0) % MCV (79.0-92.2) fL MCH (25.7-32.2) pg MCHC (32.3-36.5) g/dL RDW (11.6-14.4) % Plt Count (163-337) x10^3/uL MPV (9.4-12.4) fL Gran % (34.0-67.9) % Immature Gran % (Auto) (0.001-0.429) % Nucleat RBC Rel Count (0.00-0.2) % Eos # (Auto) (0.04-0.54) x10^3/uL Immature Gran # (Auto) (0.001-0.031) x10^3u/L Absolute Lymphs (auto) (1.32-3.57) x10^3/uL Absolute Monos (auto) (0.30-0.82) x10^3/uL Absolute Nucleated RBC (0.00-0.012) x10^3u/L Lymphocytes % (21.8-53.1) % Monocytes % (5.3-12.2) % Eosinophils % (0.8-7.0) % Basophils % (0.2-1.2) % Absolute Granulocytes (1.78-5.38) x10^3/uL Basophils # (0.01-0.08) x10^3/uL Sodium (135-145) mmol/L Potassium 3.8 (3.5-5.1) mmol/L Chloride (98-107) mmol/L Carbon Dioxide (22-30) mmol/L Anion Gap (5-15) MEQ/L BUN (9-20) mg/dL Creatinine (0.66-1.25) mg/dL Estimated GFR ML/MIN Glucose (74-106) mg/dL Calcium (8.4-10.2) mg/dL Magnesium 2.1 (1.6-2.3) mg/dL Total Bilirubin (0.2-1.3) mg/dL AST (17-59) U/L ALT (0-50) U/L Alkaline Phosphatase (38-126) U/L Troponin I < 0.012 (0.000-0.033) ng/mL Serum Total Protein (6.3-8.2) g/dL Albumin (3.5-5.0) g/dL Lipase (23-300) U/L Urine Color (Yellow) Urine Appearance (Clear) Urine pH (4.6-8.0) Ur Specific [place] (1.005-1.030) Urine Protein (Negative) Urine Glucose (UA) (Negative) mg/dL Urine Ketones (Negative) Urine Blood (Negative) Urine Nitrite (Negative) Urine Bilirubin (Negative) Urine Urobilinogen (0.2) mg/dL Ur Leukocyte Esterase (Negative) U Hyaline Cast (Auto) (0-2) /LPF Urine Microscopic RBC (0-5) /HPF Urine Microscopic WBC (0-5) /HPF Ur Epithelial Cells (None Seen) /HPF Urine Bacteria (None Seen) /HPF Urine Culture Reflexed (NO) Urine Opiates Level (NEGATIVE) Ur Methadone (NEGATIVE) Urine Barbiturates (NEGATIVE) Ur Phencyclidine (PCP) (NEGATIVE) Urine Amphetamine (NEGATIVE) U Benzodiazepine Level (NEGATIVE) Urine Cocaine (NEGATIVE) Urine Marijuana (THC) (NEGATIVE) - Radiology Impressions Radiology Exams & Impressions: Radiology Procedures Category Date Time Status ABDOMEN AND PELVIS W/0 CONTRAS [CT] Stat Exams 05/12/24 05:04 Completed Assessment/Plan (1) Alcohol abuse Current Visit: Yes Status: Acute Assessment & Plan: -CIWA protocol ordered -Advise cessation -Pt would like OP treatment -Tele montior -Thiamine, Folic Acid, and Multi-Vit ordered -Alcohol level pending Code(s): F10.10 - ALCOHOL ABUSE, UNCOMPLICATED (2) Nausea and vomiting Current Visit: Yes Status: Acute Assessment & Plan: -Compazine and zofran ordered -Clear Liquid Diet -D5NS @ 150 Code(s): R11.2 - NAUSEA WITH VOMITING, UNSPECIFIED (3) Hematemesis Current Visit: Yes Status: Acute Assessment & Plan: -Hbg 15.0 -CT Abd/Pelvis (-) -Protonix ordered BID Code(s): K92.0 - HEMATEMESIS (4) Epigastric pain Current Visit: Yes Status: Acute Assessment & Plan: -PPI Code(s): R10.13 - EPIGASTRIC PAIN (5) Depression Current Visit: Yes Status: Acute Assessment & Plan: -Psych eval VTE: Lovenox PPI: Protonix Next of Kin: Eloina Vargas [phone] Code Status: Full Code D/C plan 2-3 Days Code(s): F32.A - DEPRESSION, UNSPECIFIED
[2024-05-12] MEDS: Zofran 4 MG/2 ML VIAL IV PRN (15:00)
[2024-05-12] MEDS: PROTONIX 40 MG IV IV SCH (22:21)
[2024-05-13 04:54] LABS: Absolute Neutrophil Ct (ANC) 2.39 x10^3/uL (1.78-5.38); BASOPHIL % 0.7 % (0.2-1.2); Basophil (Absolute #) 0.04 x10^3/uL (0.01-0.08); Eosinophil % 3.2 % (0.8-7.0); Eosinophil (Absolute #) 0.18 x10^3/uL (0.04-0.54); Hematocrit 41.1 % (40.1-51.0); Hemoglobin 13.8 g/dL (13.7-17.5); IMMATURE GRAN # 0.01 x10^3u/L (0.001-0.031); IMMATURE GRAN % 0.2 % (0.001-0.429); Lymphocytes % 43.2 % (21.8-53.1); Mean Cell Volume 89.5 fL (79.0-92.2); Mean Corpuscular Hemoglobin 30.1 pg (25.7-32.2); Mean Corpuscular Hgb Concent. 33.6 g/dL (32.3-36.5); Mean Platelet Volume 9.4 fL (9.4-12.4); Monocyte (Absolute #) 0.54 x10^3/uL (0.30-0.82); Monocytes % 9.7 % (5.3-12.2); Platelet Count 202 x10^3/uL (163-337); Red Blood Count 4.59 x10^6/uL (4.63-6.08); Red Cell Distribution Width 13.3 % (11.6-14.4); White Blood Count 5.6 x10^3/uL (4.23-9.07)
[2024-05-13 05:29] VITALS: O2SAT 97
[2024-05-13 05:30] LABS: ALBUMIN 3.7 g/dL (3.5-5.0); ALKALINE PHOSPHATASE 47 U/L (38-126); ANION GAP 10.6 MEQ/L (5-15); BLOOD UREA NITROGEN 3 mg/dL (9-20); CHLORIDE 108 mmol/L (98-107); Calcium 8.6 mg/dL (8.4-10.2); Carbon Dioxide 24 mmol/L (22-30); ETHYL ALCOHOL < 10 mg/dL (0-10); Glucose 119 mg/dL (74-106); Potassium 3.6 mmol/L (3.5-5.1); SGOT/AST 32 U/L (17-59); SGPT/ALT 30 U/L (0-50); SODIUM 139 mmol/L (135-145); Total Protein 6.4 g/dL (6.3-8.2)
[2024-05-13] MEDS: Tums EX 750 MG PO PRN (08:25)
[2024-05-13] MEDS: ENOXAPARIN SODIUM SQ SCH (08:25)
[2024-05-13 08:29] VITALS: BP 136/61; PULSE 44; RESP 15; TEMP 97.5
--- NOTE | 2024-05-13 11:13 | PCM.DS ---
Discharge Summary Date of Admission: 05/12/24 08:18 Date of Discharge: 05/13/24 Admitting Physician: SANDEE LIRA MD Consults: Consults on Case 05/12/24 14:02 Consult,Sandie [Psychiatric Consult] STAT Primary Care Provider: NO FAMILY DOCTOR Allergies Allergies codeine Adverse Reaction (Mild, Verified 05/12/24 04:20) [facility] Summary - Hospital Course Hospital Course: 05/12/24 is a 23 year old male with past medical history of depression and alcohol abuse. Presented to the ED with complaints of epigastric pain, nausea, and hematemesis x1 day. He has been binge drinking since his and children left the home 3 days ago. He stated that his significant other recently left him and has been drinking both beer and liquor for the last few days. He states he should have came in 2 days ago when he began shaking but instead started drinking more to relieve the shaking. Sxs are mild. Pt states that he wishes to get help to stop drinking. CT ABD/Pelvis was unremarkable. His potassium was 3.2, but was replaced in the ED, repeat lab @ 1200 was 3.8. Pt was started on zofran and compazine for N/V, protonix, and D5NS @ 150. Denies any further concerns at this time. 05/13/24 Pt resting in bed. He states he had nightmares all night. He is feeling better and would like to d/c today. Awaiting [facility] consult. He denies suicidal or homicidal ideation. Per nurse Migdalia Thompson RN pt called [facility] and made his own OP appointment. He was not wiling to wait to speak with them today and decided to leave A at 10:30 AM. - Vitals & Intake/Output Vital Signs: Vital Signs Temperature 97.5 F 05/13/24 08:00 Pulse Rate 44 L 05/13/24 08:00 Respiratory Rate 15 05/13/24 08:00 Blood Pressure 136/61 05/13/24 08:00 O2 Sat by Pulse Oximetry 97 05/13/24 08:00 Intake & Output: Intake & Output 05/10/24 05/11/24 05/12/24 05/13/24 11:59 11:59 11:59 11:59 Intake Total 5604 Output Total 700 Balance 4904 Weight 87.6 kg - Lab Result Diagrams: 05/13/24 04:45 05/13/24 04:45 Lab Results-Last 24 Hrs: Lab Results-Last 24 Hours 05/12/24 05/12/24 05/12/24 Range/Units 05:15 11:55 11:55 WBC (4.23-9.07) x10^3/uL RBC (4.63-6.08) x10^6/uL Hgb (13.7-17.5) g/dL Hct (40.1-51.0) % MCV (79.0-92.2) fL MCH (25.7-32.2) pg MCHC (32.3-36.5) g/dL RDW (11.6-14.4) % Plt Count (163-337) x10^3/uL MPV (9.4-12.4) fL Gran % (34.0-67.9) % Immature Gran % (Auto) (0.001-0.429) % Nucleat RBC Rel Count (0.00-0.2) % Eos # (Auto) (0.04-0.54) x10^3/uL Immature Gran # (Auto) (0.001-0.031) x10^3u/L Absolute Lymphs (auto) (1.32-3.57) x10^3/uL Absolute Monos (auto) (0.30-0.82) x10^3/uL Absolute Nucleated RBC (0.00-0.012) x10^3u/L Lymphocytes % (21.8-53.1) % Monocytes % (5.3-12.2) % Eosinophils % (0.8-7.0) % Basophils % (0.2-1.2) % Absolute Granulocytes (1.78-5.38) x10^3/uL Basophils # (0.01-0.08) x10^3/uL Sodium (135-145) mmol/L Potassium 3.8 (3.5-5.1) mmol/L Chloride (98-107) mmol/L Carbon Dioxide (22-30) mmol/L Anion Gap (5-15) MEQ/L BUN (9-20) mg/dL Creatinine (0.66-1.25) mg/dL Estimated GFR ML/MIN Glucose (74-106) mg/dL Calcium (8.4-10.2) mg/dL Magnesium 2.1 (1.6-2.3) mg/dL Total Bilirubin (0.2-1.3) mg/dL AST (17-59) U/L ALT (0-50) U/L Alkaline Phosphatase (38-126) U/L Troponin I < 0.012 (0.000-0.033) ng/mL Serum Total Protein (6.3-8.2) g/dL Albumin (3.5-5.0) g/dL Urine Opiates Level NEGATIVE (NEGATIVE) Ur Methadone NEGATIVE (NEGATIVE) Urine Barbiturates NEGATIVE (NEGATIVE) Ur Phencyclidine (PCP) NEGATIVE (NEGATIVE) Urine Amphetamine NEGATIVE (NEGATIVE) U Benzodiazepine Level NEGATIVE (NEGATIVE) Urine Cocaine NEGATIVE (NEGATIVE) Urine Marijuana (THC) POSITIVE A (NEGATIVE) Ethyl Alcohol (0-10) mg/dL 05/13/24 05/13/24 Range/Units 04:45 04:45 WBC 5.6 (4.23-9.07) x10^3/uL RBC 4.59 L (4.63-6.08) x10^6/uL Hgb 13.8 (13.7-17.5) g/dL Hct 41.1 (40.1-51.0) % MCV 89.5 (79.0-92.2) fL MCH 30.1 (25.7-32.2) pg MCHC 33.6 (32.3-36.5) g/dL RDW 13.3 (11.6-14.4) % Plt Count 202 (163-337) x10^3/uL MPV 9.4 (9.4-12.4) fL Gran % 43.0 (34.0-67.9) % Immature Gran % (Auto) 0.2 (0.001-0.429) % Nucleat RBC Rel Count 0.0 (0.00-0.2) % Eos # (Auto) 0.18 (0.04-0.54) x10^3/uL Immature Gran # (Auto) 0.01 (0.001-0.031) x10^3u/L Absolute Lymphs (auto) 2.40 (1.32-3.57) x10^3/uL Absolute Monos (auto) 0.54 (0.30-0.82) x10^3/uL Absolute Nucleated RBC 0.00 (0.00-0.012) x10^3u/L Lymphocytes % 43.2 (21.8-53.1) % Monocytes % 9.7 (5.3-12.2) % Eosinophils % 3.2 (0.8-7.0) % Basophils % 0.7 (0.2-1.2) % Absolute Granulocytes 2.39 (1.78-5.38) x10^3/uL Basophils # 0.04 (0.01-0.08) x10^3/uL Sodium 139 (135-145) mmol/L Potassium 3.6 (3.5-5.1) mmol/L Chloride 108 H (98-107) mmol/L Carbon Dioxide 24 (22-30) mmol/L Anion Gap 10.6 (5-15) MEQ/L BUN 3 L (9-20) mg/dL Creatinine 0.70 (0.66-1.25) mg/dL Estimated GFR 132.0 ML/MIN Glucose 119 H (74-106) mg/dL Calcium 8.6 (8.4-10.2) mg/dL Magnesium (1.6-2.3) mg/dL Total Bilirubin 0.90 (0.2-1.3) mg/dL AST 32 (17-59) U/L ALT 30 (0-50) U/L Alkaline Phosphatase 47 (38-126) U/L Troponin I (0.000-0.033) ng/mL Serum Total Protein 6.4 (6.3-8.2) g/dL Albumin 3.7 (3.5-5.0) g/dL Urine Opiates Level (NEGATIVE) Ur Methadone (NEGATIVE) Urine Barbiturates (NEGATIVE) Ur Phencyclidine (PCP) (NEGATIVE) Urine Amphetamine (NEGATIVE) U Benzodiazepine Level (NEGATIVE) Urine Cocaine (NEGATIVE) Urine Marijuana (THC) (NEGATIVE) Ethyl Alcohol < 10 (0-10) mg/dL - Radiology Exams Ordered Rad Exams-Entire Visit: Radiology Procedures Category Date Time Status ABDOMEN AND PELVIS W/0 CONTRAS [CT] Stat Exams 05/12/24 05:04 Completed Discharge Exam General Appearance: no apparent distress, alert Neurologic Exam: alert, oriented x 3, cooperative, normal mood/affect, nml cer ebellar function, sensation nml, No motor deficits Eye Exam: PERRL, EOMI, eyes nml inspection Ears, Nose, Throat Exam: normal ENT inspection, pharynx normal, moist mucous membranes Neck Exam: normal inspection, non-tender, supple, full range of motion Respiratory Exam: normal breath sounds, lungs clear, No respiratory distress Cardiovascular Exam: regular rate/rhythm, normal heart sounds Gastrointestinal/Abdomen Exam: soft, No tenderness, No mass Male Genitalia Exam: deferred Rectal Exam: deferred Back Exam: normal inspection, normal range of motion, No CVA tenderness, No vertebral tenderness Extremity Exam: normal inspection, normal range of motion Skin Exam: normal color, warm, dry Final Diagnosis/Problem List - Final Discharge Diagnosis/Problem (1) Alcohol abuse Status: Acute Code(s): F10.10 - ALCOHOL ABUSE, UNCOMPLICATED (2) Nausea and vomiting Status: Acute Code(s): R11.2 - NAUSEA WITH VOMITING, UNSPECIFIED (3) Hematemesis Status: Acute Code(s): K92.0 - HEMATEMESIS (4) Epigastric pain Status: Acute Code(s): R10.13 - EPIGASTRIC PAIN (5) Depression Status: Acute Assessment & Plan: Pt left AMA (1) Alcohol abuse Current Visit: Yes Status: Acute Assessment & Plan: -CIWA protocol ordered -Advise cessation -Pt would like OP treatment -Tele montior -Thiamine, Folic Acid, and Multi-Vit ordered -Alcohol level pending 05/13 - denies homicidal or suicidal ideation - [facility] psych consult not done as pt left AMA - Per nurse pt made OP F/u appointment with [facility] to prior to leaving. Code(s): F10.10 - ALCOHOL ABUSE, UNCOMPLICATED (2) Nausea and vomiting Current Visit: Yes Status: Acute Assessment & Plan: -Compazine and zofran ordered -Clear Liquid Diet -D5NS @ 150 05/13 - pt pulled out IV per nursing to go home - tolerated clear liquid diet well last night and this AM - no overnight N/V Code(s): R11.2 - NAUSEA WITH VOMITING, UNSPECIFIED (3) Hematemesis Current Visit: Yes Status: Acute Assessment & Plan: -Hbg 15.0 -CT Abd/Pelvis (-) -Protonix ordered BID Code(s): K92.0 - HEMATEMESIS (4) Epigastric pain Current Visit: Yes Status: Acute Assessment & Plan: -PPI Code(s): R10.13 - EPIGASTRIC PAIN (5) Depression Current Visit: Yes Status: Acute Assessment & Plan: -Psych eval Code(s): F32.A - DEPRESSION, UNSPECIFIED - Discharge Discharge Date: 05/13/24 Disposition: Against Medical Advice Condition: Fair Prescriptions: New Ondansetron ODT 4 MG [Zofran Odt 4 mg] 4 mg PO Q6H PRN PRN #10 tablet PRN Reason: Vomiting PANTOPRAZOLE 40 mg Tablet [Protonix 40MG Tablet] 40 mg PO DAILY 14 Days #14 tab Follow up with: GRETCHEN ROBERTSON [LOCATION] - 06/07/24 8:30 am STERLING HIGHTOWER NP [NON-STAFF PHY W/O PRIVILEGES] - 05/19/24 10:30 am
== END 2024-05-13 10:30 | disposition left against medical advice (07) ==
LOC: ED 04:11 → MED SURG 08:18
PROVIDERS: ADMIT Internal Medicine; ATTEND Internal Medicine
DX: F10.10 Alcohol abuse, uncomplicated (principal); R10.13 Epigastric pain; F17.200 Nicotine dependence, unspecified, uncomplicated; K92.0 Hematemesis; F32.A Depression, unspecified
CPT/HCPCS: 36000; 36415; 74176; 80053; 80307; 81001; 82077; 83690; 83735; 84132; 84484; 85025; 93268; 94762; 96365; 96366; 96368; 96374; 96375; 99285; G0378; Q3014; J1650; J2405; J3360; J3475; J3480; A9270-GY